=== PATIENT | female | born 1965 | race Two or more races ===

== ENCOUNTER 2024-09-05 14:06 | Emergency (ER) | payer MEDICARE, MEDICAID, SELFPAY ==
[2024-09-05 14:09] VITALS: BMI 36.8
[2024-09-05 14:28] VITALS: BP 118/88; PULSE 72; RESP 18; TEMP 36.9; O2SAT 100
--- NOTE | 2024-09-05 14:33 | XR_ITS ---
Examination: Lumbar spine 3 views Technique one AP lateral coned lateral lower lumbar spine 3 views Exam date and time: September 05, 2024 1505 hours INDICATIONS: Lower back pain beginning one week ago. FINDINGS: Adequate alignment lumbar vertebral bodies Advanced degenerative disc disease L5-S1 No spondylolisthesis Moderate lumbar spondylosis Mild to moderate bilateral hip osteoarthritis IMPRESSION: Advanced degenerative disc disease L5-S1
--- NOTE | 2024-09-05 14:33 | EKG_ITS ---
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
--- NOTE | 2024-09-05 14:34 | XR_ITS ---
Examination: Abdomen sonogram, Limited Date and time of exam: September 05, 2024 1527 hours INDICATIONS: Epigastric pain beginning 2 weeks ago. Technique: Real-time josue scale transabdominal sonographic images of the upper abdomen obtained. Findings: Absent gallbladder Normal common bile duct 0.5 cm Pancreatic head 2.6 cm Liver 16.5 cm lobular contour fatty infiltration no focal liver lesions Normal hepatopedal portal venous flow Patent IVC IMPRESSION: Absent gallbladder Normal common bile duct Mild hepatomegaly fatty liver primary hepatocellular disease
--- NOTE | 2024-09-05 14:35 | PD.EDRME ---
Rapid Medical Screening Exam [facility] Arrival date/time: 09/05/24 14:06 58-year-old female presents the emergency department with complaints of epigastric pressure and pain for 3 days. Patient also complaining of lumbar pain and burning. I have greeted and performed a focused initial assessment of this patient. Initial appropriate labs ordered at this time. A comprehensive ED assessment and evaluation of the patient and analysis of all test and completion of medical decision making process will be conducted by additional ED provider. Chief Complaint: Abdominal Pain Time Seen by Provider: 09/05/24 14:23 Vital signs: Vital Signs Temperature 98.5 F 09/05/24 14:28 Pulse Rate 72 09/05/24 14:28 Respiratory Rate 18 09/05/24 14:28 Blood Pressure 118/88 H 09/05/24 14:28 Pulse Oximetry (%) 100 09/05/24 14:28 Oxygen Delivery Method Room Air 09/05/24 14:28
[2024-09-05 15:14] LABS: Basophils % (Auto) 0 % (0-2.5); Eosinophils # (Auto) 0.1 Thou/mm3 (0.0-0.5); Eosinophils % (Auto) 2 % (0-10); Hematocrit 41.4 % (36.0-46.0); Hemoglobin 15.3 g/dL (12.0-16.0); Immature Granulocytes % (Auto) 0 % (0-0); Immature Granulocytes Auto 0.02 Thou/mm3 (0.00-0.00); Lymphocytes # (Auto) 1.8 Thou/mm3 (1.0-4.8); Lymphocytes % (Auto) 31 % (10-50); Mean Corpuscular Hemoglobin 31.6 pg (25.0-35.0); Mean Corpuscular Volume 86 fL (80-100); Monocytes # (Auto) 0.4 Thou/mm3 (0.0-0.8); Monocytes % (Auto) 7 % (0-12); Neutrophils # (Auto) 3.3 Thou/mm3 (1.8-7.7); Neutrophils % (Auto) 59 % (37-80); Nucleated Red Blood Cell % 0 /100 WBC (0); Platelet Count 299 Thou/mm3 (140-440); RDW Standard Deviation 37.2 fL (36.4-46.3); Red Blood Count 4.84 Miln/mm3 (4.00-5.20); White Blood Count 5.7 Thou/mm3 (3.6-11.0)
[2024-09-05 15:30] LABS: Partial Thromboplastin Time 28.1 Seconds (22.0-36.0)
[2024-09-05 15:32] LABS: B-Type Natriuretic Peptide 83 pg/mL (0-100)
[2024-09-05 15:36] LABS: Alanine Aminotransferase 16 U/L (10-49); Albumin, Serum 4.5 gm/dL (3.5-5.0); Albumin/Globulin Ratio 1.5 (1.2-2.2); Alkaline Phosphatase 79 U/L (46-116); Anion Gap 12 (7-16); Aspartate Amino Transferase 18 U/L (0-34); BUN/Creatinine Ratio 10 Ratio (12-20); Bilirubin,Total 0.9 mg/dL (0.3-1.2); Blood Urea Nitrogen 9 mg/dL (9-23); Calcium 10.2 mg/dL (8.3-10.6); Calcium (Corrected) 10.2 mg/dL (8.5-10.1); Carbon Dioxide 24.4 mMol/L (20.0-31.0); Chloride 92 mMol/L (98-107); Creatinine (Component) 0.9 mg/dL (0.6-1.3); Estimated Creatinine Clearance 89.5 mL/min (>60); Glucose 110 mg/dL (74-106); Lipase 47 U/L (12-53); Magnesium 1.8 mg/dL (1.6-2.6); Osmolality,Calculated 256 (275-295); Potassium 3.9 mMol/L (3.4-5.1); Sodium 128 mMol/L (136-145); Total Protein 7.5 gm/dL (5.7-8.2); Troponin I < 0.020 ng/mL (0.0-0.045); eGFR > 60 See Note
[2024-09-05 16:08] LABS: Collection Type, Urine Clean Catch
[2024-09-05 16:52] LABS: Bacteria,Urine Rare; Bilirubin,Urine Negative (Negative); Blood,Urine Negative (Negative); Clarity,Urine Clear (Clear/Hazy); Color,Urine Yellow (Lt Yel-Yel); Glucose, Urine Negative (Negative); Ketones,Urine 2+ (Negative); Leukocyte Esterase,Urine Positive (Negative); Nitrite,Urine Negative (Negative); PH,Urine 6.5 (5.0-7.0); Protein,Urine Negative (Neg - Trace); RBC,Urine 3 /hpf (0-3); Squamous Epithelial Cell,Urine 5 /hpf (0-5); Urobilinogen,Urine Negative mg/dL (0.0-1.0); WBC,Urine 39 /hpf (0-5)
[2024-09-05 17:20] VITALS: BP 130/74; PULSE 58; RESP 16; TEMP 36.7; O2SAT 97
--- NOTE | 2024-09-05 19:03 | EDNOTE_ITS ---
<Statement entered by Sanjuana Morales MD - 09/06/24 18:38> As co-signing physician, I was present and available for consult prn. I concur with the plan and care as documented by the midlevel provider. ED General RME/[facility] General Chief complaint: Abdominal Pain Stated complaint: ABDOMINAL PAIN, NAUSEA X 7 DAYS, POST PNEUMONIA Time Seen by Provider: 09/05/24 14:23 Arrival date/time: 09/05/24 14:06 RME / HPI RME / HPI narrative: 58-year-old female patient came in for evaluation regarding low back pain. Patient has been having low back pain for the last 3 days, described as burning- like sensation, severity moderate. Patient also complained of epigastric pain for the last 3 days. Patient was recently diagnosed with pneumonia and recent diagnosis of UTI. Currently taking Macrodantin Pepcid and Bentyl. Denies any other complaints no medications taken prior to arrival. Related Data Allergies Allergy/AdvReac Type Severity Reaction Status Date / Time acetaminophen (From Tylenol) Allergy Verified 09/05/24 14:09 Review of Systems Review of Systems Narrative Review of Systems: Review of system reviewed and within normal limits except mentioned in HPI ED Exam Narrative Physical exam: VITAL SIGNS: Reviewed. GENERAL APPEARANCE: Alert and interactive, follows commands, no acute distress, HEAD AND FACE: Non-traumatic. ENT: PERRL, pink conjunctivitis, eyelid no trauma, Mucous membrane moist. NECK: Supple, nontender, no nuchal rigidity. CHEST: No tenderness, no crepitus, no paradoxical movement, no retractions. LUNGS: Clear, well ventilated, symmetric, no rales, no wheezing, no ronchi, no stridor, good breath sounds bilaterally. HEART: Regular rate, regular rhythm, no murmur, no gallops. ABDOMEN: Soft, positive bowel sounds, nondistended, no guarding, nontender, no rebound, no masses, RECTAL: Deferred. GENITAL: Deferred. NEUROLOGICAL: Gross motor function intact sensory function intact, Appropriate for age. MUSCULOSKELETAL: low back tenderness,, full range of motion. EXTREMITIES: Nontender, full range of motion. SKIN: Color pink, dry, no rash, no lacerations, no abrasions, no contusions. LYMPHATICS: Deferred. Course Quality Measures none Orders Category Date Time Status EKG (ED ONLY) *Do not use* NOW Care 09/05/24 14:33 Completed NPO STAT Care 09/05/24 14:33 Active EKG (ED Only) Stat Exams 09/05/24 14:33 Draft US gall bladder Stat Exams 09/05/24 14:34 Completed XR lumbar spine 2-3V Stat Exams 09/05/24 14:33 Completed BNP [B-Type Natriuretic Peptide] Stat Lab 09/05/24 14:53 Completed CBC Stat Lab 09/05/24 14:53 Completed Comprehensive Metabolic Panel Stat Lab 09/05/24 14:53 Completed Lipase Stat Lab 09/05/24 14:53 Completed Magnesium Stat Lab 09/05/24 14:53 Completed Partial Thromboplastin Time Stat Lab 09/05/24 14:53 Completed Troponin I Stat Lab 09/05/24 14:53 Completed Urinalysis Stat Lab 09/05/24 16:00 Completed Ketorolac Inj [Toradol Inj] Med 09/05/24 19:02 Discontinued 30 mg IM X1 ONE Vital Signs Vital signs: Vital Signs Temperature 98.5 F 09/05/24 14:28 Pulse Rate 72 09/05/24 14:28 Respiratory Rate 18 09/05/24 14:28 Blood Pressure 118/88 H 09/05/24 14:28 Pulse Oximetry (%) 100 09/05/24 14:28 Oxygen Delivery Method Room Air 09/05/24 14:28 [facility] Patient data External records reviewed:: None Clinical information provided by:: patient Social determinants that could affect healthcare access:: none Patient has the following chronic illnesses:: Hypertension How is presenting disease/condition affected by chronic disease/condition?: no chronic disease Evaluation data The following diagnostics were reviewed and interpreted by me:: radiology exam(s) Lab and/or radiology exams considered but not ordered:: None Interpretation Summary: See results in MDM Medications Medications considered but not ordered:: None Medication administrations:: Medication Administration History Ketorolac Tromethamine (Ketorolac Inj 60 Mg/2 Ml Vial) 30 mg IM X1 ONE Stop: 09/05/24 19:03 Toradol IM Consultations Consultation(s) initiated? (list below): No Diagnosis Differential Diagnosis ED Complaint MDM: Low back pain, degenerative disc disease of the lumbar spine. UTI Most likely diagnosis given after review of the tests above:: Low back pain, UTI, epigastric pain Admission Indicated Admission indicated?: not indicated Explain why admission is indicated or not indicated:: Stable Admission Request Was there a request for admission?: No Disposition Plan Disposition Plan: Discharge Discharge Attestation Discharge Attestation: The patient and all family members were given an opportunity to ask questions and understood the discharge instructions. Discharge instructions specifically effects, indications for sooner follow up or return to the emergency department, and the expected course of current diagnosis. Patient condition: Stable Medical Decision Making MDM Narrative MDM Narrative: 58-year-old female patient came in for evaluation regarding low back pain. Patient has been having low back pain for the last 3 days, described as burning- like sensation, severity moderate. Patient also complained of epigastric pain for the last 3 days. Patient was recently diagnosed with pneumonia and recent diagnosis of UTI. Currently taking Macrodantin Pepcid and Bentyl. Denies any other complaints no medications taken prior to arrival. Laboratory workup all came back unremarkable except for UTI no leukocytosis noted. Patient also was noted to have slightly hyponatremia 128. Ultrasound of the gallbladder came back unremarkable. X-ray of the lumbar spine showed A dvanced degenerative disc disease L5-S1 Differential Diagnosis Differential Diagnosis: Low back pain, degenerative disc disease of the lumbar spine. UTI Lab Data 09/05/24 14:53 09/05/24 14:53 Labs: Lab Results 09/05/24 09/05/24 Range/Units 14:53 16:00 WBC 5.7 (3.6-11.0) Thou/mm3 RBC 4.84 (4.00-5.20) Miln/mm3 Hgb 15.3 (12.0-16.0) g/dL Hct 41.4 (36.0-46.0) % MCV 86 (80-100) fL MCH 31.6 (25.0-35.0) pg MCHC 37.0 (31.0-37.0) g/dl RDW Std Deviation 37.2 (36.4-46.3) fL Plt Count 299 (140-440) Thou/mm3 Neut % (Auto) 59 (37-80) % Lymph % (Auto) 31 (10-50) % Cobb % (Auto) 7 (0-12) % Eos % (Auto) 2 (0-10) % Baso % (Auto) 0 (0-2.5) % Neut # (Auto) 3.3 (1.8-7.7) Thou/mm3 Lymph # (Auto) 1.8 (1.0-4.8) Thou/mm3 Cobb # (Auto) 0.4 (0.0-0.8) Thou/mm3 Eos # (Auto) 0.1 (0.0-0.5) Thou/mm3 Baso # (Auto) 0.0 (0.0-0.2) Thou/mm3 Immature Gran # (Auto) 0.02 H (0.00-0.00) Thou/mm3 Absolute Nucleated RBC 0.00 (0.00-0.00) Thou/mm3 Immature Gran % 0 (0-0) % Nucleated RBC % 0 (0) /100 WBC APTT 28.1 (22.0-36.0) Seconds Sodium 128 L (136-145) mMol/L Potassium 3.9 (3.4-5.1) mMol/L Chloride 92 L (98-107) mMol/L Carbon Dioxide 24.4 (20.0-31.0) mMol/L Anion Gap 12 (7-16) BUN 9 (9-23) mg/dL Creatinine 0.9 (0.6-1.3) mg/dL Estim Creat Clear Calc 89.5 (>60) mL/min eGFR > 60 (60 - ) See Note BUN/Creatinine Ratio 10 L (12-20) Ratio Glucose 110 H (74-106) mg/dL Calculated Osmolality 256 L (275-295) Calcium 10.2 (8.3-10.6) mg/dL Corrected Calcium 10.2 H (8.5-10.1) mg/dL Magnesium 1.8 (1.6-2.6) mg/dL Total Bilirubin 0.9 (0.3-1.2) mg/dL AST 18 (0-34) U/L ALT 16 (10-49) U/L Alkaline Phosphatase 79 (46-116) U/L Troponin I < 0.020 (0.0-0.045) ng/mL B-Natriuretic Peptide 83 (0-100) pg/mL Total Protein 7.5 (5.7-8.2) gm/dL Albumin 4.5 (3.5-5.0) gm/dL Globulin 3.0 (2.3-3.5) gm/dL Albumin/Globulin Ratio 1.5 (1.2-2.2) Lipase 47 (12-53) U/L Ur Collection Type Clean Catch Urine Color Yellow (Lt Yel-Yel) Urine Clarity Clear (Clear/Hazy) Urine pH 6.5 (5.0-7.0) Ur Specific [place] 1.010 (1.001-1.035) Urine Protein Negative (Neg - Trace) Urine Glucose (UA) Negative (Negative) Urine Ketones 2+ A (Negative) Urine Blood Negative (Negative) Urine Nitrite Negative (Negative) Urine Bilirubin Negative (Negative) Urine Urobilinogen (Auto) Negative (0.0-1.0) mg/dL Ur Leukocyte Esterase Positive (Negative) Urine RBC 3 (0-3) /hpf Urine WBC 39 H (0-5) /hpf Ur Squamous Epith Cells 5 (0-5) /hpf Urine Bacteria Rare (None) Discharge Plan Plan Patient Disposition: HOME (Self Care) Disposition Comment: Stable Prescriptions/Referrals Referrals: Ani Valdez FNP [Primary Care Provider] - In 1 week Problem List Clinical Impression: Low back pain, UTI (urinary tract infection) Patient/Caregiver Discharge Instructions Discharge Activity: activity as tolerated Education Materials: Understanding Urinary Tract ... Additional Instructions: Thank you for the opportunity for serving you today. You are stable for discharged . You are advised to: Follow-up with your PCP in 1 to 2 days Return to ED for worsening of symptoms Increase oral fluids Take medication as prescribed by your PCP Print Language: Kyrgyz Stand Alone Forms: Shivani Award Info., Patient Portal Info Letter ROSAS Supervising Physician SEYMOUR/RIKY Supervising Physician: MD Andrew
[2024-09-05] MEDS: KETOROLAC INJ 60 MG/2 ML VIAL 30 MG IM (19:27)
[2024-09-05 19:35] VITALS: RESP 18
== END 2024-09-05 19:36 | disposition home or self-care (01) ==
PROVIDERS: Nurse Practitioner Primary Care; Emergency Provider Emergency Medicine; PCP Nurse Practitioner Family
DX: N39.0 Urinary tract infection, site not specified (principal); M54.50 Low back pain, unspecified
CPT/HCPCS: 36415; 72100; 76705; 80053; 81001; 83690; 83735; 83880; 84484; 85025; 85730; 93005; 96372; 99284; J1885